=== PATIENT | male | born 1985 | race Hispanic/Latino ===

== ENCOUNTER 2022-10-01 20:56 | Emergency (ER) | payer SELFPAY ==
[~2022-10-01] VITALS: Ht 185.4 cm; Wt 101.4 kg
[2022-10-02 03:26] VITALS: BP 118/78
== END 2022-10-02 04:34 | disposition left against medical advice (07) ==
LOC: M ED 20:56
DX: Z53.21 Procedure and treatment not carried out due to patient leaving prior to being seen by health care provider (principal)